=== PATIENT | male | born 1990 | race Hispanic/Latino ===

== ENCOUNTER 2017-04-19 20:59 | Emergency (ER) | payer OTHER ==
[~2017-04-19] VITALS: Ht 170.2 cm; Wt 80.7 kg
[~2017-04-19 20:59] MED LIST: NAPROXEN500 MG PO; NORCO 5-325 TA1 EACH PO
[2017-04-19] MEDS ORDERED: IBUPROFEN800 MG PO (21:08)
[2017-04-19] MEDS ORDERED: CEPHALEXIN500 MG PO (22:37)
== END 2017-04-19 22:58 | disposition home or self-care (01) ==
LOC: ED 20:59
DX: T23.272D Burn of second degree of left wrist, subsequent encounter (principal); L08.9 Local infection of the skin and subcutaneous tissue, unspecified; F17.200 Nicotine dependence, unspecified, uncomplicated
CPT/HCPCS: 99283

== ENCOUNTER 2019-12-08 22:16 | Emergency (ER) | payer SELFPAY ==
[~2019-12-08] VITALS: Ht 170.2 cm; Wt 81.7 kg
[~2019-12-08 22:16] MED LIST changes: +CEPHALEXIN500 MG PO; +IBUPROFEN800 MG PO
--- OUTSIDE RECORDS SUMMARY | 2019-12-08 22:18 | XMS ---
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 [facility] has no Care Guidelines for this patient. Kailash VISIT COUNT (12 MO.) 1 TANYA Anderson TOTAL 1 NOTE: Visits indicate total known visits. ED/UCC VISIT TRACKING (12 MO.) 12/08/2019 22:16 [facility] OR TYPE: Emergency COMPLAINT: - SOB INPATIENT VISIT TRACKING (12 MO.) No inpatient visits to display in this time frame [email or web address]
--- NOTE | 2019-12-08 23:01 | EKG ---
[facility] [address] [place] [address] Signed Normal sinus rhythm Early repolarization Normal ECG No previous ECGs available Confirmed by BRYAN GARRIDO MD ([id number] on 12/08/2019 11:00:57 PM Electronically Signed By: BRYAN GARRIDO MD 12/08/19 230 PATIENT NAME: SARAH MCKEONLUCASTiago SOSA Electrocardiogram DATE OF : 88 PHYSICIAN: BRYAN GARRIDO MD REPORT #: [id number] REPORT IS CONFIDENTIAL AND NOT TO BE RELEASED WITHOUT AUTHORIZATION
== END 2019-12-09 00:17 | disposition home or self-care (01) ==
LOC: ED 22:16
DX: F41.9 Anxiety disorder, unspecified (principal); R07.89 Other chest pain; F17.200 Nicotine dependence, unspecified, uncomplicated
CPT/HCPCS: 71046; 80053; 84484; 85025; 93005; 93010; 99285-25

== ENCOUNTER 2020-05-19 06:48 | Emergency (ER) | payer OTHER ==
[~2020-05-19] VITALS: Ht 170.2 cm; Wt 81.6 kg
--- OUTSIDE RECORDS SUMMARY | 2020-05-19 06:50 | XMS ---
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 [facility] has no Care Guidelines for this patient. Kailash VISIT COUNT (12 MO.) 2 TANYA Anderson TOTAL 2 NOTE: Visits indicate total known visits. ED/UCC VISIT TRACKING (12 MO.) 05/19/2020 06:48 TANYA [facility] OR TYPE: Emergency COMPLAINT: - HEAD LAC 12/08/2019 22:16 TANYA [facility] OR TYPE: Emergency COMPLAINT: - SOB DIAGNOSES: - Other chest pain - Nicotine dependence, unspecified, uncomplicated - Anxiety disorder, unspecified INPATIENT VISIT TRACKING (12 MO.) No inpatient visits to display in this time frame [id number]
== END 2020-05-19 07:37 | disposition home or self-care (01) ==
LOC: ED 06:48
DX: S01.81XA Laceration without foreign body of other part of head, initial encounter (principal); W22.8XXA Striking against or struck by other objects, initial encounter; Y99.0 Civilian activity done for income or pay; F17.200 Nicotine dependence, unspecified, uncomplicated
CPT/HCPCS: 12014; 99282-25